=== PATIENT | female | born 1960 | race Hispanic/Latino ===

== ENCOUNTER 2023-07-16 20:04 | Emergency (ER) | payer SELFPAY ==
[~2023-07-16] VITALS: Ht 170.2 cm; Wt 86.0 kg
[2023-07-16] MEDS ORDERED: TAM75CAP PO (22:04)
[2023-07-16 22:24] VITALS: BP 147/85
== END 2023-07-16 22:28 | disposition home or self-care (01) | DRG 195 ==
LOC: ED 20:04
DX: J10.1 Influenza due to other identified influenza virus with other respiratory manifestations (principal); Z20.822 Contact with and (suspected) exposure to COVID-19